=== PATIENT | male | born 1995 | race Caucasian/White ===

== ENCOUNTER 2018-09-30 19:40 | Emergency (ER) | payer SELFPAY ==
[~2018-09-30] VITALS: Ht 162.6 cm; Wt 71.3 kg
[~2018-09-30 19:40] MED LIST: CIPR500T4 PO; IBUP800T48 PO
[2018-09-30 19:45] VITALS: BP 163/74; PULSE 80; RESP 18; Ht 162.6 cm; Wt 71.3 kg
== END 2018-09-30 22:54 | disposition home or self-care (01) ==
LOC: FTE 19:40
DX: N50.811 Right testicular pain (principal); N45.2 Orchitis; N43.3 Hydrocele, unspecified; N45.1 Epididymitis
CPT/HCPCS: 76870; 81001; 87086; 87591; J1885; 96372